=== PATIENT | female | born 1955 | race Caucasian/White ===

== ENCOUNTER 2020-12-05 14:30 | Outpatient (CLI) | payer MEDICARE, SELFPAY ==
--- NOTE | ~2020-12-05 | MM_ITS ---
EXAMINATION: MM screening sean BI w ifeanyi HISTORY: Screening TECHNIQUE: Craniocaudal and mediolateral oblique 3-D tomosynthesis images were obtained and synthetic 2-D images were generated. CAD analysis was submitted and interpreted. COMPARISON: Comparison to multiple prior studies sequentially, with oldest reviewed study dated 11/18. BREAST PARENCHYMAL COMPOSITION: The breasts are heterogeneously dense, which may obscure small masses . FINDINGS: There is no evidence of suspicious mass, calcification, or architectural distortion to sugg est malignancy in either breast. There has been no suspicious interval change. IMPRESSION: 1. No mammographic evidence of malignancy. 2. Recommend routine screening mammography in one year. BI-RADS Category 1: Negative Reviewed, dictated and finalized at location A.
--- NOTE | ~2020-12-05 | DEXA_ITS ---
Bone Density Report Name: Zuleyma Fajardo Age: 65 Sex: Female Ethnicity: White Date of : 1955 Indication: osteopenia; height loss; hysterectomy; postmenopausal Referring Provider: Pilo Montes De Oca Study: Bone densitometry was performed. Exam Date: December 05, 2020 Accession number: [id number] Bone Density: Region BMD T-score Z-score Classification AP Spine (L1, L4) 0.878 -1.4 0.4 Osteopenia Femoral Neck (Left) 0.633 -1.9 -0.4 Osteopenia Total Hip (Left) 0.775 -1.4 -0.1 Osteopenia Total Hip Bilateral Avg 0.790 -1.3 0.1 Osteopenia Femoral Neck (Right) 0.683 -1.5 0.1 Osteopenia Total Hip (Right) 0.805 -1.1 0.2 Osteopenia World Health Organization criteria for BMD impression classify patients as: Normal (T-score at or above -1.0), Osteopenia (T-score between -1.0 and -2.5), or Osteoporosis (T-score at or below -2.5). 10-year Fracture Risk(1): Major Osteoporotic Fracture 11% Hip Fracture 1.6% Reported Risk Factors: [place] (), Neck BMD=0.633, BMI=24.4 (1) FRAX(R) Version 3.08. Fracture probability calculated for an untreated patient. Fracture probability may be lower if the patient has received treatment. Previous Exams: Region Exam Age BMD T-score BMD Change BMD Change Date g/cm2 vs Baseline vs Previous AP Spine(L1, L4) 12/05/2020 65 0.878 -1.4 -0.099(-10.1%) 0.066(8.2%)* 10/31/2014 58 0.812 -2.0 -0.165(-16.9%) -0.028(-3.4%)# 11/02/2010 54 0.840 -1.8 -0.137(-14.0%) -0.024(-2.8%)* 04/10/2007 51 0.864 -1.6 -0.113(-11.5%) -0.113(-11.5%) 07/26/2003 47 0.977 -0.5 Total Hip(Left) 12/05/2020 65 0.775 -1.4 -0.221(-22.2%) -0.070(-8.2%)* 10/31/2014 58 0.845 -0.8 -0.151(-15.2%) -0.030(-3.5%)# 11/02/2010 54 0.876 -0.5 -0.121(-12.1%) -0.015(-1.6%) 04/10/2007 51 0.890 -0.4 -0.106(-10.7%) -0.106(-10.7%) 07/26/2003 47 0.997 0.4 Total Hip(Right) 12/05/2020 65 0.805 -1.1 -0.228(-22.1%) -0.068(-7.8%)* 10/31/2014 58 0.873 -0.6 -0.160(-15.4%) -0.053(-5.8%)# 11/02/2010 54 0.927 -0.1 -0.106(-10.3%) -0.022(-2.3%) 04/10/2007 51 0.948 0.1 -0.084(-8.2%)* -0.084(-8.2%)* 07/26/2003 47 1.033 0.7 *Denotes significance at 95% confidence level, LSC for AP Spine = 0.022 g/cm2, LSC for Total Hip = 0.027 g/cm2 Clinical Information Provided by Patient: Has the following medical conditions: Hysterectomy Patient maximum height was 63 Menopause Age: 49 Drinks caffeinated beverages Onset of menses at age 11 Number of child
== END 2020-12-05 14:31 | disposition home or self-care (01) ==
LOC: ANHIMG 14:35
PROVIDERS: PCP Family Medicine; Visit Provider Physician Assistant Medical
DX: Z12.31 Encounter for screening mammogram for malignant neoplasm of breast (principal); Z78.0 Asymptomatic menopausal state; M85.89 Other specified disorders of bone density and structure, multiple sites
CPT/HCPCS: 77063; 77067; 77080

== ENCOUNTER → 2021-03-03 16:25 | Outpatient (CLI) | payer MEDICARE, SELFPAY ==
--- NOTE | ~2021-03-03 | XR_ITS ---
EXAMINATION: XR knee LT min 4V DATE: 03/03/2021 16:41 INDICATION: Left knee pain. Fall. TECHNIQUE: 4 views of left knee were obtained. COMPARISON: None. FINDINGS: Bone alignment is normal. No fracture. There is mild osteoarthritis of medial and lateral c ompartments characterized by tiny marginal osteophytes. No joint space narrowing. No knee joint effus ion. IMPRESSION: 1. Mild left knee osteoarthritis. Reviewed, dictated and finalized at location A. RN
== END ==
PROVIDERS: PCP Physician Assistant Medical; Visit Provider Physician Assistant Medical
DX: M25.562 Pain in left knee (principal); M17.12 Unilateral primary osteoarthritis, left knee
CPT/HCPCS: 73564

== ENCOUNTER 2021-04-18 10:42 | Emergency (ER) | payer MEDICARE, SELFPAY ==
[2021-04-18 10:49] VITALS: BP 133/86; PULSE 80; RESP 12; TEMP 36.9; O2SAT 100
--- NOTE | 2021-04-18 11:12 | ED.GENADULT ---
HPI - General Adult General Chief complaint: Urogenital-Female Stated complaint: blood in urine Source: patient Mode of arrival: ambulatory Limitations: no limitations History of Present Illness HPI narrative: Patient presents for evaluation of urinary symptoms since this morning. Symptoms include dysuria, hematuria, and urinary frequency. She has some chronic low back pain not worse as of late. She does have some suprapubic pain. No descriptive quality or numerical rating to the pain. She reports hot flashes but denies objective fever, chills, nausea, vomiting, vaginal bleeding or discharge. No hx of kidney stones or UTI. Surgical history positive for hysterectomy. No additional complaints or concerns. Related Data Home Medications Medication Instructions Recorded Confirmed vit C 250 mg-vit E 90 mg-zinc 40 1 tablet PO DAILY cap 07/04/19 03/03/21 mg-copper 1 [id number] capsule cholecalciferol (vitamin D3) 25 25 mcg PO DAILY 02/23/21 03/03/21 mcg (1,000 unit) capsule Allergies Allergy/AdvReac Type Severity Reaction Status Date / Time bee venom protein (honey bee) Allergy Unknown Unknown Verified 03/03/21 15:33 ANTIHISTAMINE Allergy Unknown HYPERACTIVE Uncoded 02/13/20 10:30 REACTION Review of Systems Review of Systems: CONSTITUTIONAL: Reports hot flashes denies fever, chills, or sweats. EYES: Denies visual changes, redness, or discharge. ENT: Denies rhinorrhea, congestion, sore throat, or otalgia. CARDIOVASCULAR: Denies chest pain, palpitations, or edema. RESPIRATORY: Denies cough or dyspnea. GASTROINTESTINAL: Reports suprapubic pain. Denies nausea, vomiting, or diarrhea. GENITOURINARY: Reports urinary frequency, dysuria and hematuria SKIN: Denies rash or itching. MUSCULOSKELETAL: Reports chronic low back pain, not worse as of late. Denies joint pain, or myalgia. NEUROLOGIC: Denies headache, numbness, dizziness, or weakness. PSYCHIATRIC: Denies anxiety or depression. [facility] Past Medical History Medical History Depression History of bone density study (~10/31/14) Postmenopausal Sacroiliac joint dysfunction of left side Surgical History Surgical History History of adenoidectomy History of colonoscopy (~09/05/15) History of hysterectomy with bilateral oophorectomy (~2003) History of tonsillectomy Hx of cholecystectomy Family History Family History Mother Depression Cerebrovascular accident Osteoporosis Macular degeneration History of anesthesia reaction Father Cerebrovascular accident Heart disease Dementia Grandparent Heart disease Social History Social History Smoking end date: 04/04/78 Alcohol intake: current Alcohol use details: drinks two ETOH containing beverages seven days per week Substance use: never Gender identity (if verbalized by the patient): Female Spiritual care concerns: No Exam Narrative: GENERAL: Well-appearing, well-nourished, and in no acute distress. HEAD: Normocephalic, atraumatic. EYES: PERRLA and EOMI. ENT: Nares clear, no rhinorrhea or epistaxis. Mucous membranes moist. Oropharynx without tonsillar hypertrophy exudate or other lesions. Bilateral TMs pearly moura nonbulging NECK: Supple. No adenopathy or masses. No carotid bruits or JVD CHEST: Clear to auscultation. No respiratory distress. No wheezes rales or rhonchi HEART: Regular rate and rhythm. No murmur heard. Normal peripheral pulses. ABDOMEN: Soft, nontender, nondistended, normal active bowel sounds. EXTREMITIES: Normal range of motion. No edema. SKIN: Warm, dry, no rash. NEURO: No focal deficits. Alert and oriented x3. PSYCH: Normal mood and affect. Course Course Emergency Course: This is
== END 2021-04-18 11:24 | disposition home or self-care (01) ==
PROVIDERS: Emergency Provider Nurse Practitioner; PCP Family Medicine
DX: N39.0 Urinary tract infection, site not specified (principal)
CPT/HCPCS: 81003; 87077; 87086; 87186; 99213; G0463

== ENCOUNTER 2022-02-10 08:06 | Outpatient (CLI) | payer MEDICARE, SELFPAY ==
--- NOTE | ~2022-02-10 | MM_ITS ---
EXAMINATION: MM screening sean BI w ifeanyi HISTORY: Screening mammogram TECHNIQUE: Craniocaudal and mediolateral oblique 3-D tomosynthesis images were obtained and synthetic 2-D images were generated. CAD analysis was submitted and interpreted. COMPARISON: [id number] 2020 bilateral screening mammogram 02/14/2019 right ultrasound-guided biopsy 02/06/2019 diagnostic right mammogram and limited right breast ultrasound 01/21/2019, 01/21/2017 bilateral screening mammogram examinations BREAST PARENCHYMAL COMPOSITION: The breasts are heterogeneously dense, which may obscure small masses . FINDINGS: There is a biopsy marker on the right; history of prior benign right breast biopsy. There i s no evidence of suspicious mass, calcification, or architectural distortion to suggest malignancy in either breast. There has been no suspicious interval change. IMPRESSION: 1. No mammographic evidence of malignancy. 2. Recommend routine screening mammography in one year. BI-RADS Category 1: Negative Reviewed, dictated and finalized at location A. SERVICE MANAGER
== END 2022-02-10 08:07 | disposition home or self-care (01) ==
PROVIDERS: PCP Family Medicine; Visit Provider Family Medicine
DX: Z12.31 Encounter for screening mammogram for malignant neoplasm of breast (principal)
CPT/HCPCS: 77063; 77067

== ENCOUNTER 2023-02-15 09:59 | Outpatient (CLI) | payer MEDICARE, SELFPAY ==
[2023-02-15 14:37] LABS: Kit Draw Collected
== END 2023-02-15 10:00 | disposition home or self-care (01) ==
LOC: ANHGOSHLAB 10:00
PROVIDERS: PCP Family Medicine; Visit Provider Nurse Practitioner Family
DX: E16.2 Hypoglycemia, unspecified (principal); E53.8 Deficiency of other specified B group vitamins; E55.9 Vitamin D deficiency, unspecified; F41.1 Generalized anxiety disorder; Z11.59 Encounter for screening for other viral diseases
CPT/HCPCS: 36415

== ENCOUNTER 2023-06-08 13:22 | Outpatient (CLI) | payer MEDICARE, SELFPAY ==
--- NOTE | ~2023-06-08 | MM_ITS ---
EXAMINATION: MM screening sean BI w ifeanyi HISTORY: Screening mammogram TECHNIQUE: Craniocaudal and mediolateral oblique 3-D tomosynthesis images were obtained and synthetic 2-D images were generated. CAD analysis was submitted and interpreted. COMPARISON: 02/10/2022, 12/05/2020 bilateral screening mammogram examinations BREAST PARENCHYMAL COMPOSITION: The breasts are heterogeneously dense, which may obscure small masses . FINDINGS: Biopsy marker on the right; history of prior benign right breast biopsy in 2017. There is n o evidence of suspicious mass, calcification, or architectural distortion to suggest malignancy in ei ther breast. There has been no suspicious interval change. IMPRESSION: 1. No mammographic evidence of malignancy. 2. Recommend routine screening mammography in one year. BI-RADS Category 1: Negative Reviewed, dictated and finalized at location A. STAFF ACCOUNTANT
== END 2023-06-08 13:23 | disposition home or self-care (01) ==
LOC: ANHIMG 13:26
PROVIDERS: PCP Family Medicine; Visit Provider Family Medicine
DX: Z12.31 Encounter for screening mammogram for malignant neoplasm of breast (principal)
CPT/HCPCS: 77063; 77067

== ENCOUNTER 2024-06-29 09:59 | Outpatient (CLI) | payer MEDICARE, SELFPAY ==
--- NOTE | ~2024-06-29 | MM_ITS ---
EXAMINATION: MM screening sean BI w ifeanyi HISTORY: Screening TECHNIQUE: Craniocaudal and mediolateral oblique 3-D tomosynthesis images were obtained and synthetic 2-D images were generated. CAD analysis was submitted and interpreted. COMPARISON: 06/08/2023 and dating back to 01/25/2019 BREAST PARENCHYMAL COMPOSITION: The breasts are heterogeneously dense, which may obscure small masses . FINDINGS: Microclip within the upper outer right breast, consistent with patient's history. Stable parenchymal pattern without suspicious microcalcifications, architectural distortion, discrete masses or significant asymmetry. IMPRESSION: 1. No mammographic evidence of malignancy. 2. Recommend routine screening mammography in one year. BI-RADS Category 2: Benign finding(s). Reviewed, dictated and finalized at location A.
--- OUTSIDE RECORDS SUMMARY | 2024-06-29 10:48 | XMS_ITS | Clinical Summary ---
Author Organization [facility] Address [address] 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
--- OUTSIDE RECORDS SUMMARY | 2024-06-29 10:48 | XMS_ITS | Encounter Summary ---
Author Organization [facility] Address [address] [place] [address] Care Team Providers Care Plant Pathology Teacher Name Role Phone Unavailable Primary Care Provider Unavailabl e Encounter Details Date Type Department Care Team (Late st Contact Info) Description 07/18/[address] 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
== END 2024-06-29 10:00 | disposition home or self-care (01) ==
LOC: ANHIMG 10:00
PROVIDERS: PCP Family Medicine; Visit Provider Family Medicine
DX: Z12.31 Encounter for screening mammogram for malignant neoplasm of breast (principal)
CPT/HCPCS: 77063; 77067